=== PATIENT | male | born 1960 | race Asian ===

== ENCOUNTER 2019-06-24 13:58 | Emergency (ER) | payer OTHER, SELFPAY ==
[~2019-06-24] VITALS: Ht 172.7 cm; Wt 77.3 kg
[2019-06-24] MEDS ORDERED: METF-960 PO (14:54)
[2019-06-24] MEDS ORDERED: SIMV-261 PO (14:54)
[2019-06-24] MEDS ORDERED: ASPI-728 PO (14:54)
[2019-06-24] MEDS ORDERED: LOSA50TA37 PO (14:54)
[2019-06-24] MEDS ORDERED: AMLO5TAB9 PO (14:54)
[2019-06-24] MEDS ORDERED: ACETAMINOPHEN 500 MG TABLET PO ONE (15:15)
[2019-06-24] MEDS ORDERED: BENZONATATE 100 MG CAPSULE PO ONE (15:15)
[2019-06-24 16:52] LABS: INFLUENZA TYPE A NEGATIVE FOR TYPE A (NEGATIVE); INFLUENZA TYPE B POSITIVE FOR TYPE B (NEGATIVE)
[2019-06-24 17:35] VITALS: BP 118/68
[2019-06-24 19:15] LABS: GLUCOMETER DEV NAME(LOC) AHU.; GLUCOSE,POINT OF CARE 114 MG/DL (70-110)
== END 2019-06-24 18:00 | disposition home or self-care (01) ==
LOC: EMS 14:00
DX: J10.1 Influenza due to other identified influenza virus with other respiratory manifestations (principal); B97.29 Other coronavirus as the cause of diseases classified elsewhere; M79.10 Myalgia, unspecified site; E11.9 Type 2 diabetes mellitus without complications; E78.00 Pure hypercholesterolemia, unspecified; I10 Essential (primary) hypertension; Z79.82 Long term (current) use of aspirin; Z79.84 Long term (current) use of oral hypoglycemic drugs
CPT/HCPCS: 87635; 87804

== ENCOUNTER 2019-07-19 10:51 | Emergency (ER) | payer SELFPAY ==
[~2019-07-19] VITALS: Ht 170.2 cm; Wt 65.9 kg
[~2019-07-19 10:51] MED LIST: AMLO5TAB9 PO; ASPI-728 PO; LOSA-88 PO; METF-960 PO; SIMV-261 PO
[2019-07-19 11:02] VITALS: BP 131/83
== END 2019-07-19 12:31 | disposition home or self-care (01) ==
LOC: EMS 10:58
DX: Z03.818 Encounter for observation for suspected exposure to other biological agents ruled out (principal); E11.9 Type 2 diabetes mellitus without complications; E78.00 Pure hypercholesterolemia, unspecified; I10 Essential (primary) hypertension; Z90.49 Acquired absence of other specified parts of digestive tract; Z79.899 Other long term (current) drug therapy; Z79.84 Long term (current) use of oral hypoglycemic drugs; Z79.82 Long term (current) use of aspirin
CPT/HCPCS: 87635